=== PATIENT | male | born 1975 | race Caucasian/White ===

== ENCOUNTER 2016-06-27 00:31 | Emergency (ER) | payer OTHER ==
[2016-06-27] MEDS ORDERED: Ibuprofen TAB* 400 MG PO ONE (02:06)
--- NOTE | 2016-06-27 02:13 | ED ---
Throat Pain/Nasal Congestion - HPI Summary HPI Summary: 40 male presents with complaints of having a foreign body in his right eye that occurred around 8am this morning 06/26/16. Patient states he was using a metal grinder and is not sure what flew in his eye. He was wearing a face mask. Patient states it could of been steel. Eye has been worsening and right eye vision is somewhat blurred. He is able to see and denies any vision loss and complaints with left eye. Patient tried using a saline wash and refresh eye drops without relief. Denies any other complaints, injuries or medical problems. - History of Current Complaint Chief Complaint: EDEyeProblem Time Seen by Provider: 06/27/16 01:16 Hx Obtained From: Patient Onset/Duration: Sudden Onset, Lasting Days - 1, Worse Since Severity: Moderate Associated Signs And Symptoms: Positive: FB Sensation - right eye - Allergies/Home Medications Allergies/Adverse Reactions: Allergies Allergy/AdvReac Type Severity Reaction Status Date / Time Bupropion [From Wellbutrin] Allergy Intermediate Rash Verified 06/27/16 01:02 Bee Venom Allergy Hives Verified 06/27/16 01:02 PMH/Surg Hx/FS Hx/Imm Hx Endocrine/Hematology History: Denies: Hx Diabetes Cardiovascular History: Denies: Hx Hypertension, Hx Pacemaker/ICD Respiratory History: Denies: Hx Asthma Musculoskeletal History: Denies: Hx Rheumatoid Arthritis, Hx Osteoporosis Sensory History: Denies: Hx Hearing Aid Neurological History: Reports: Hx Headaches, Other Neuro Impairments/Disorders - HEAD INJURY. PAIN CLINIC PT. Psychiatric History: Denies: Hx Panic Disorder - Surgical History Surgery Procedure, Year, and Place: WISDOM TEETH REMOVAL. APPENDIX. URETHRAL STRICTURE - Immunization History Immunizations Up to Date: Yes Infectious Disease History: No Infectious Disease History: Denies: Traveled Outside the [place] in Last 30 Days - Family History Known Family History: Positive: None - Social History Alcohol Use: Rare Substance Use Type: Reports: None Smoking Status (MU): Never Smoked Tobacco Review of Systems Constitutional: Negative Positive: Photophobia, Blurred Vision, Drainage - right eye, Erythema ENT: Negative Cardiovascular: Negative Respiratory: Negative Skin: Negative Neurological: Negative All Other Systems Reviewed And Are Negative: Yes Physical Exam Triage Information Reviewed: Yes Vital Signs On Initial Exam: Initial Vitals Temp Pulse Resp BP Pulse Ox 98.4 F 63 18 142/99 99 06/27/16 01:01 06/27/16 01:01 06/27/16 01:01 06/27/16 01:01 06/27/16 01:01 elevated BP noted, patient was in pain Vital Signs Reviewed: Yes Appearance: Positive: Well-Appearing, Pain Distress - minimal Skin: Positive: Warm, Skin Color Reflects Adequate Perfusion, Dry, Other - some edema noted periorbital right eye Head/Face: Positive: Normal Head/Face Inspection Eyes: Positive: EOMI, SANDRA, Conjunctiva Inflammed - erythematous, FB noted on right eye, lateral cornea over iris pinpoint in size, no rust ring. fluroscein stain preformed, FB removed with q-tip, corneal abrasion at area of FB noted. visual acuity normal, left eye normal, eye lids without FB ENT: Positive: Normal ENT inspection, Hearing grossly normal, Pharynx normal Neck: Positive: Supple, Nontender Respiratory/Lung Sounds: Positive: Clear to Auscultation, Breath Sounds Present Cardiovascular: Positive: Normal, RRR, Pulses are Symmetrical in both Upper and Lower Extremities Musculoskeletal: Positive: Normal, Strength/ROM Intact Neurological: Positive: Normal, Alert, Oriented to Person Place, Time, CN Intact II-III, Normal Gait Psychiatric: Positive: Normal Procedures - Eye Procedure Alcaine Drops Administered: Yes Eye FB Removal: removal w/ cotton swab - without complication, right eye Eye Irrigated w/ Saline (ccs): 10 Antibiotic Ointment/Drps Admin: right eye Diagnostics - Vital Signs Vital Signs Temp Pulse Resp BP Pulse Ox 06/27/16 01:01 98.4 F 63 18 142/99 99 - Laboratory Lab Statement: Any lab studies that have been ordered have been reviewed, and results considered in the medical decision making process. EENT Course/Dx - Course Course Of Treatment: FB removed from right eye without complication. given polytrim drops to take at home for infection prevention. patient also had discharge during PE. cool compresses, ibuprofen and follow up. aware of worsening signs and symptoms to watch out for. - Differential Diagnoses Differential Diagnoses: Conjunctivitis, Corneal Abrasion, Foreign Body, Hyphema , Other - Diagnoses Provider Diagnoses: Foreign body of right eye, Corneal abrasion, right Discharge - Discharge Plan Condition: Stable Disposition: HOME Patient Education Materials: Corneal Abrasion (ED), Eye Foreign Body (ED) Referrals: Bebe Childers NP [Primary Care Provider] - Additional Instructions: Use prescribed eye drops as directed. Every 3 hours, for the first 5 days. Then three times daily for the last 2 days. Cool compresses to soothe eye. Ibuprofen for pain and swelling. Rest eye. Symptoms may persist for the next 2 days. If symptoms worsen or do not improve please return or follow up with primary care provider.
[2016-06-27] MEDS ORDERED: Polymyx/Trimethoprim OPTH* 10 ML BTL RIGHT EYE SCH (02:30)
[2016-06-27 02:32] VITALS: BP 137/64
== END 2016-06-27 02:29 | disposition home or self-care (01) ==
LOC: ED 00:31
DX: T15.91XA Foreign body on external eye, part unspecified, right eye, initial encounter (principal); T15.01XA Foreign body in cornea, right eye, initial encounter; X58.XXXA Exposure to other specified factors, initial encounter; Y92.9 Unspecified place or not applicable
CPT/HCPCS: 99282; A9270-GY